=== PATIENT | female | born 1995 | race Caucasian/White ===

== ENCOUNTER → 2016-11-07 | Day surgery (SDC) | payer OTHER ==
[~2016-11-07] MED LIST: ACETAMINOPHEN 1000 MG/100 ML VIAL IV ONE; APREPITANT 40 MG CAP ONE; BACITRACIN IM FOR SOLN 50,000 UNIT VIAL ONE; BUPIVACAINE/EPINEPHRINE 0.5% PF 30 ML VIAL ONE; GENTAMICIN SULFATE 80 MG/2 ML VIAL ONE; IBUP600 PO; LACTATED RINGER'S 1000 ML INJ 1,000 ML ONE; LIDOCAINE 2%/EPINEPHrine PF 1:200,000 20ML SDV ONE; MECL-62 PO; MEPERIDINE HCL 50 MG/ML VIAL ONE; MIDAZOLAM HCL 2 MG/2 ML VIAL ONE; ONDANSETRON HCL 4 MG/2 ML VIAL IV PUSH ONE; OXYC1SOL5 PO; PRENTAB72 PO; PROPOFOL 100 MG/10 ML INJ IV ONE; PROPOFOL 500 MG/50 ML BTL IV ONE; SODIUM CHLORIDE 0.9% 20 ML VIAL ONE; SODIUM CHLORIDE 0.9% INJ 10 ML ONE; VIST25CA PO; ZOFR4TAB PO; ceFAZolin INJ 1,000 MG VIAL ONE
--- NOTE | 2016-11-07 09:26 | TN ---
cc: BENNY TORRES M.D. DATE OF SURGERY 11/07/2016 PREOPERATIVE DIAGNOSIS breast atrophy. POSTOPERATIVE DIAGNOSIS breast atrophy. PROCEDURES Bilateral augmentation mammoplasty. SURGEON Benny Torres MD ANESTHESIA LMA general. ESTIMATED BLOOD LOSS Minimal. COMPLICATIONS None. IMPLANT DATA, PLACEMENT AND TECHNIQUE Implants: Fadumo Inspira SRX 545 cc, serial number of the right breast device is [id number] and serial number of the left breast implant device [id number]. Both are 545 cc SRX. Placement: Retropectoral. Incision: Inframammary PROCEDURE She was properly consented, marked, anesthetized the skin sterilized with Betadine solution and sterile draping applied. A total of 60 cc of a breast block was applied in which we mixed 1% lidocaine and epinephrine mixed with 0.25% Marcaine in a 2:1 ratio, 30 cc per breast. After proper sterilization of the skin and the appropriate sterile draping was applied, through an inframammary incision of 4.5 to 5 cm, the retropectoral plane was approached, the pocket was dissected and the inferomedial fibers released after isolating the skin from the beginning of the NAC and I irrigated the pocket with triple antibiotic solution. The implant was introduced utilizing no-touch technique. The contralateral side was approached in exactly the same manner as previously described. The patient was sat up. Assuring and assuming best symmetry possible, we proceeded and brought the patient back supine and wounds were closed in multiple layers of 2-0 Monocryl suture on Shiraz's fascia, dermis and subcu. After Mastisol, the Steri-Strips were applied, absorbent dressing and snug brassiere. Overall the patient tolerated the procedure well. She was awakened, extubated in the operating room, transferred back to the postanesthesia care unit in stable condition. No complications appreciated. The patient tolerated the procedure fairly well. MD GERTRUDE Thomas/TRACY /8:38 AM /9:21 AM
--- NOTE | 2016-11-07 11:48 | TH ---
cc: ELIAS WELSH M.D. DATE: DATE OF : 1995 HISTORY OF PRESENT ILLNESS This is a 21-year-old female who is to undergo a breast enhancement. The patient is a healthy individual, has no past medical problems, did have a breast cyst removed on 11/09. Medications include Microgestin and Citalopram. The patient had a severe ___ for previous anesthesias. Review of systems otherwise noncontributory to current problems and breast history is otherwise unremarkable. She does have a history of pathology on the breasts including aunts, cousins and mother, however, at old age. PHYSICAL EXAMINATION CONSTITUTIONAL: General appearance. The patient is a well-developed female in no acute distress. Body habitus is within normal limits. There appear to be no deformities. Appears to have attention to grooming. HEENT: Eyes Conjunctivae and lids are within normal anatomical limits. The pupils are reactive to light and accommodation, size, and symmetry. There is no evidence of exudate, hemorrhage, or vessel change. Ears, mouth, nose, and throat The external inspection of the ears and nose fails to demonstrate any pathology, scars, lesions, or masses. Nasal mucosa, septum, and turbinates appear to be well hydrated as well as the lips and gums. No evidence of masses in the hypopharynx or submental area. RESPIRATORY: The patient shows no evidence of intercostal refractions. Otherwise, lungs are clear to auscultation without any abnormal sounds or rubs. CARDIOVASCULAR: The patient has a normal heart rate and rhythm. There is no evidence of noticed carotid bruits. Femoral pulses and pedal pulses in extremities are also within normal limits. GASTROINTESTINAL/ABDOMEN: Soft with no evidence of masses or tenderness. Unable to palpate the liver or spleen. No evidence of hernia. MUSCULOSKELETAL: Appears to be reasonable range of motion on the head, neck, spine, ribs, pelvis, right upper extremity, left upper extremity, right lower extremity, and left lower extremity. The muscle strength and tone appears to be equal and within accepted limits. SKIN: There is no rashes, lesions, or ulcers on the trunk, back, and extremities. NEUROLOGICAL: Examination is grossly normal. PSYCHIATRIC: The patient appears to have good orientation of time, place, and person. Does not appear to have any mood effects of depression, anxiety, or agitation. Her breast is hypoplastic in nature. PLAN Augmentation mammoplasty, SRX Fadumo Inspire 545 in the retropectoral plane inframammary incision. The risks and possible complications were discussed with the patient. MD GERTRUDE Thomas/PRABHAKAR /3:28 PM /11:46 AM
== END | disposition home or self-care (01) ==
LOC: ESDC 06:03
PROVIDERS: ATTEND Plastic Surgery
DX: Z41.1 Encounter for cosmetic surgery (principal)
CPT/HCPCS: 00402; 19325; C1789; J0131; J0690; J1580; J2175; J2250; J2405; J3010; J7120; J8501